=== PATIENT | female | born 1980 | race Asian ===

== ENCOUNTER 2019-10-21 18:25 | Emergency (ER) | payer MEDICAID, SELFPAY ==
[~2019-10-21] VITALS: Ht 167.6 cm; Wt 63.0 kg
[2019-10-21 19:39] LABS: BASOPHILS % (AUTO) 0 % (0-1); EOSINOPHILS # (AUTO) 0.03 x10^3/uL (0-0.4); EOSINOPHILS % (AUTO) 0 % (1-7); LYMPHOCYTES # (AUTO) 1.37 x10^3/uL (1-3.4); LYMPHOCYTES % (AUTO) 15 % (22-44); MD NO; MEAN CORPUSCULAR HEMOGLOBIN 33.8 pg (27.0-34.8); MEAN CORPUSCULAR HGB CONC 33.7 g/dL (32.4-35.8); MEAN CORPUSCULAR VOLUME 100.3 fL (80-100); MEAN PLATELET VOLUME 8.7 fL (7.4-10.4); MONOCYTES # (AUTO) 0.42 x10^3/uL (0.2-0.8); MONOCYTES % (AUTO) 5 % (2-9); NEUTROPHILS # (AUTO) 7.31 x10^3/uL (1.8-6.8); NEUTROPHILS % (AUTO) 80 % (42-75); PLATELET COUNT 277 x10^3/uL (130-400); RED BLOOD COUNT 4.33 x10^6/uL (3.82-5.3)
[2019-10-21 19:51] LABS: ALBUMIN 3.5 g/dL (3.4-5.0); ANION GAP 8 mmol/L (5-15); CALCIUM 8.8 mg/dL (8.5-10.1); CHLORIDE 109 mmol/L (98-107)
[2019-10-21 19:58] LABS: CREATININE 0.77 mg/dL (0.55-1.02); TROPONIN I < 0.015 ng/mL (0.000-0.045)
[2019-10-21] MEDS ORDERED: SODIUM CHLORIDE 0.9%, 500ML IVBOLUS ONE (20:00)
[2019-10-21] MEDS ORDERED: OMNIPAQUE 350 MG/ML, 100ML BOTTLE ONE (20:47)
[2019-10-21 20:56] LABS: ALBUMIN 3.4 g/dL (3.4-5.0)
[2019-10-21 21:00] LABS: BILIRUBIN, DIRECT 0.2 mg/dL (0.1-0.2); BILIRUBIN,INDIRECT 0.6 mg/dL (0.0-2.0); BILIRUBIN,TOTAL 0.8 mg/dL (0.2-1.0); TOTAL PROTEIN 7.7 g/dL (6.4-8.2)
[2019-10-21] MEDS ORDERED: SODIUM CHLORIDE 0.9% 1,000ML IVBOLUS ONE (21:00)
[2019-10-21 21:02] VITALS: BP 160/88
[2019-10-21] MEDS ORDERED: AZITHROMYCIN 500 MG in SODIUM CHLORIDE 0.9% 250 ML IV ONE (21:30)
== END 2019-10-21 22:30 | disposition home or self-care (01) ==
LOC: ED 19:10
DX: J15.9 Unspecified bacterial pneumonia (principal)
CPT/HCPCS: 36415; 71046; 71275; 80048; 80076; 82040; 83690; 84484; 84703; 85025; 85379; 93005; 96365; 99285; J0456; J7030; J7040; J7050; Q9967

== ENCOUNTER 2020-03-01 13:46 | Emergency (ER) | payer BC, OTHER ==
[~2020-03-01] VITALS: Ht 157.5 cm; Wt 57.8 kg
[2020-03-01] MEDS ORDERED: ONDANSETRON 2MG/ML, 2ML ONE (14:15)
[2020-03-01] MEDS ORDERED: MORPHINE SULFATE 4 MG/ML, 1ML ONE (14:15)
[2020-03-01] MEDS ORDERED: KETOROLAC 30 MG/1 ML ONE (14:15)
[2020-03-01] MEDS ORDERED: MORPHINE SULFATE 4 MG/ML, 1ML IVPush PRN (14:30)
[2020-03-01] MEDS ORDERED: KETOROLAC 30 MG/1 ML IVPush ONE (14:30)
[2020-03-01] MEDS ORDERED: ONDANSETRON 2MG/ML, 2ML IVPush ONE (14:30)
[2020-03-01 14:43] LABS: BASOPHILS # (AUTO) 0.01 x10^3/uL (0-0.1); BASOPHILS % (AUTO) 0 % (0-1); EOSINOPHILS % (AUTO) 0 % (1-7); LYMPHOCYTES # (AUTO) 0.77 x10^3/uL (1-3.4); LYMPHOCYTES % (AUTO) 11 % (22-44); MD NO; MEAN CORPUSCULAR HEMOGLOBIN 35.4 pg (27.0-34.8); MEAN CORPUSCULAR HGB CONC 34.2 g/dL (32.4-35.8); MEAN CORPUSCULAR VOLUME 103.4 fL (80-100); MEAN PLATELET VOLUME 8.8 fL (7.4-10.4); MONOCYTES % (AUTO) 7 % (2-9); NEUTROPHILS # (AUTO) 5.77 x10^3/uL (1.8-6.8); NEUTROPHILS % (AUTO) 82 % (42-75); PLATELET COUNT 199 x10^3/uL (130-400); RED BLOOD COUNT 4.12 x10^6/uL (3.82-5.3); RED CELL DISTRIBUTION WIDTH 12.4 % (9.6-15.2)
[2020-03-01 14:54] LABS: ALBUMIN 2.9 g/dL (3.4-5.0); ANION GAP 6 mmol/L (5-15); CHLORIDE 106 mmol/L (98-107)
--- NOTE | 2020-03-01 14:54 | NUR ---
PT CAME IN CO OF FLANK PAIN X 2 DAYS. PT ACCOMPANIED BY . MEDICATED PER MAR. REPORTS PAIN IMRPOVEMENT
[2020-03-01] MEDS ORDERED: SODIUM CHLORIDE FLUSH 10ML SYR IVF ONE (15:00)
[2020-03-01 15:01] LABS: ALANINE AMINOTRANSFERASE 24 U/L (12-78); ALKALINE PHOSPHATASE 57 U/L (45-117); BILIRUBIN,TOTAL 1.1 mg/dL (0.2-1.0); CREATININE 0.94 mg/dL (0.55-1.02); TOTAL PROTEIN 7.3 g/dL (6.4-8.2)
[2020-03-01 15:10] LABS: MICROSCOPIC INDICATED
[2020-03-01] MEDS ORDERED: OMNIPAQUE 350 MG/ML, 100ML BOTTLE ONE (15:37)
[2020-03-01 15:44] VITALS: BP 127/87
--- NOTE | 2020-03-01 15:44 | NUR ---
PT RESTING IN [facility]. REPORTS PAIN IMPROVEMENT
[2020-03-01] MEDS ORDERED: CEFTRIAXONE PMX 1GM/50ML 50 ML ONE (15:58)
[2020-03-01] MEDS ORDERED: CEFTRIAXONE PMX 1GM/50ML 50 ML IV ONE (16:00)
== END 2020-03-01 16:31 | disposition home or self-care (01) ==
LOC: ED 15:02
DX: N10 Acute pyelonephritis (principal)
CPT/HCPCS: 36415; 74177; 80053; 81001; 84703; 85025; 87077; 87086; 96365; 96375; 99285; J0696; J1885; J2270; J2405; Q9967; 87186

== ENCOUNTER 2020-09-21 13:01 | Emergency (ER) | payer OTHER ==
[~2020-09-21] VITALS: Ht 157.5 cm; Wt 57.6 kg
--- NOTE | 2020-09-21 13:28 | NUR ---
PT HERE WITH C/O ANXIETY, STATES SHE HAS BEEN PRESCRIBED PROPRANOLOL, ESCITALOPRAM, AND HYDROXYZINE. PLACED ON VITALS MONITORS, CALL LIGHT WITHIN REACH, WARM BLANKET PROVIDED. PT'S FRIEND AT BEDSIDE.
[2020-09-21] MEDS ORDERED: LORazepam 1MG TABLET ONE (13:59)
[2020-09-21] MEDS ORDERED: LORazepam 1MG TABLET PO ONE (14:00)
--- NOTE | 2020-09-21 14:05 | NUR ---
Report received from tasking RN and care assumed. Pt was just medicated for anxiety. Will require reassessment shortly.
[2020-09-21 14:14] LABS: BASOPHILS % (AUTO) 1 % (0-1); EOSINOPHILS % (AUTO) 1 % (1-7); LYMPHOCYTES % (AUTO) 40 % (22-44); MEAN CORPUSCULAR HEMOGLOBIN 35.2 pg (27.0-34.8); MEAN CORPUSCULAR HGB CONC 34.3 g/dL (32.4-35.8); MONOCYTES % (AUTO) 11 % (2-9); NEUTROPHILS % (AUTO) 47 % (42-75); PLATELET COUNT 236 x10^3/uL (130-400); RED BLOOD COUNT 4.46 x10^6/uL (3.82-5.3); RED CELL DISTRIBUTION WIDTH 13.4 % (9.6-15.2)
[2020-09-21 14:20] LABS: MD NO
--- NOTE | 2020-09-21 14:25 | NUR ---
Pt speaking with behavioral health RN at this time. States she feels some relief of anxiety since being medicated alreasy.
[2020-09-21 14:27] LABS: ALBUMIN 3.9 g/dL (3.4-5.0); ANION GAP 7 mmol/L (5-15); CHLORIDE 107 mmol/L (98-107)
[2020-09-21 14:34] LABS: ALANINE AMINOTRANSFERASE 111 U/L (12-78); ALKALINE PHOSPHATASE 61 U/L (45-117); BILIRUBIN,TOTAL 1.3 mg/dL (0.2-1.0); CREATININE 0.73 mg/dL (0.55-1.02); TOTAL PROTEIN 7.3 g/dL (6.4-8.2); TROPONIN I < 0.015 ng/mL (0.000-0.045)
--- NOTE | 2020-09-21 14:56 | NUR ---
REPORT FROM RADHA KEEN.
--- NOTE | 2020-09-21 14:57 | NUR ---
Report given to OSMANI Gomes and care transferred.
[2020-09-21 15:39] VITALS: BP 141/80
== END 2020-09-21 15:55 | disposition home or self-care (01) ==
LOC: ED 15:45
DX: F41.1 Generalized anxiety disorder (principal); R07.89 Other chest pain; R06.02 Shortness of breath; R42 Dizziness and giddiness; H53.8 Other visual disturbances; R00.0 Tachycardia, unspecified
CPT/HCPCS: 36415; 80053; 82306; 83735; 84436; 84443; 84484; 84703; 85025; 93005; 99284